=== PATIENT | female | born 1950 | race Two or more races ===

== ENCOUNTER 2022-04-09 09:02 | Outpatient (CLI) | payer MEDICARE, OTHER | END 2022-04-09 23:59 | disposition home or self-care (01) | LOC: LAB 09:02 | PROVIDERS: ATTEND Obstetrics & Gynecology | DX: Z01.812 Encounter for preprocedural laboratory examination (principal); Z20.822 Contact with and (suspected) exposure to COVID-19 | CPT/HCPCS: C9803; U0003 ==

== ENCOUNTER 2022-04-12 08:13 | Day surgery (SDC) | payer MEDICARE, OTHER ==
[~2022-04-12] VITALS: Ht 152.4 cm; Wt 67.1 kg
[2022-04-12 08:30] VITALS: BP 129/74
--- NOTE | 2022-04-12 08:30 | NUR ---
MS COMMODITIES TRADER NOTES RECEIVED PATIENT FROM HOME AMBULATORY AND A/O X4. ON ROOM AIR TOLERATING WELL. NO SOB NOTED. NOT IN DISTRESS. WITH NO COMPLAINTS OF PAIN OR DISCOMFORT AT THIS TIME. WITH NO IV ACCESS. FOR DAY SURGERY - EUA- UTERINE HYSTEROSCOPY WITH DILATATION AND CURETTAGE SCHEDULED AT 1000. SAFETY MEASURES IN PLACED. CALL LIGHT WITHIN REACH. BED ON LOWEST AND LOCKED POSITION. SIDE RAILS UP X2. WILL CONTINUE TO MONITOR.
[2022-04-12] MEDS ORDERED: ANESTHESIA TRAY IN PYXIS 1 EA TRAY MC ONE (08:49)
--- NOTE | 2022-04-12 09:45 | NUR ---
RN NOTES OBTAINED CONSENT FOR PROCEDURES AND WAS PICKED UP BY OR PERSONNEL.
[2022-04-12 09:52] LABS: BASOPHILS % (AUTO) 0.8 % (0.0-2.0); EOSINOPHILS % (AUTO) 4.3 % (0.0-6.0); HEMATOCRIT 39 % (33-45); HEMOGLOBIN 13.1 g/dL (11.5-14.8); LYMPHOCYTES # (AUTO) 0.8 K/uL (0.8-4.8); LYMPHOCYTES % (AUTO) 21.5 % (20.0-44.0); MEAN CORPUSCULAR HGB CONC 34 g/dl (31.0-36.0); MEAN CORPUSCULAR VOLUME 93 fL (82-100); MONOCYTES # (AUTO) 0.4 K/uL (0.1-1.30); MONOCYTES % (AUTO) 12.7 % (2.0-12.0); NEUTROPHILS # (AUTO) 2.1 K/uL (1.8-8.9); NEUTROPHILS % (AUTO) 60.7 % (43.0-81.0); PLATELET COUNT (AUTO) 208 K/uL (150-450); RED BLOOD CELL COUNT(AUTO) 4.23 MIL/uL (4.0-5.2); WHITE BLOOD COUNT (AUTO) 3.5 K/uL (4.3-11.0)
[2022-04-12] MEDS ORDERED: FENTANYL PF 100MCG/2ML AMPUL ONE (09:58)
[2022-04-12 10:04] LABS: CALCIUM, SERUM 8.7 mg/dL (8.5-10.1); CREATININE 0.8 mg/dL (0.6-1.3); POTASSIUM 3.6 mmol/L (3.5-5.1)
[2022-04-12 10:10] LABS: ALBUMIN 3.5 g/dL (3.4-5.0); BILIRUBIN,TOTAL 0.6 mg/dL (0.2-1.0); TOTAL PROTEIN, SERUM 7.2 g/dL (6.4-8.2)
--- NOTE | 2022-04-12 14:50 | NUR ---
METHODS TIME ANALYST NOTES PATIENT IS ORDERED FOR DISCHARGE POST SURGERY IF STABLE PER DOCTOR TOBAR. PATIENT REMAINED STABLE POST SURGERY. DISCHARGE INSTRUCTION PROVIDED TO THE PATIENT. PATIENT IS TO HAVE A FOLLOW-UP CHECK UP WITH PRIMARY CARE PHYSICIAN A WEEK AFTER DISCHARGE. DISCHARGE INSTRUCTION FORM SIGNED BY THE PATIENT. PATIENT VERBALIZED UNDERSTANDING. REMOVED IV LINE AND NAME [id number]. ACCOMPANIED PATIENT TO THE [facility] AMBULATORY AND IN STABLE CONDITION. MD AND CHARGE NURSE ARE AWARE OF THE DISCHARGE.
[2022-04-13 10:53] LABS: BILIRUBIN,URINE NEGATIVE (NEGATIVE); COLOR,URINE YELLOW (YELLOW); LEUKOCYTE ESTERASE ,URINE NEGATIVE (NEGATIVE); NITRITE, URINE NEGATIVE (NEGATIVE); PROTEIN,URINE NEGATIVE (NEGATIVE); UGLUCOSE NEGATIVE (NEGATIVE); UROBILINOGEN,URINE 0.2 EU/dL (0.2)
[2022-04-13 11:07] LABS: BACTERIA,URINE 4+ /HPF (None Seen); RBC,URINE NONE SEEN /HPF (0-2); SQUAMOUS EPITHELIAL CELL,UR 81-100 /HPF (None Seen); WBC,URINE NONE SEEN /HPF (0-3)
== END 2022-04-12 19:00 | disposition home or self-care (01) ==
LOC: DS 08:13 → UNDOADMIN 08:15 → MED 08:15 → UNDODISIN 15:09 → DS 19:00
PROVIDERS: ATTEND Obstetrics & Gynecology
DX: N85.2 Hypertrophy of uterus (principal); R10.2 Pelvic and perineal pain
CPT/HCPCS: 58558; 80053; 87086; 85025; 85730; 85610; 81001; 36415; J0690; J1100; J2704; J3010; J3490 ×2; J2405; J7030; A6402; G0378

== ENCOUNTER 2023-06-12 10:20 | Emergency (ER) | payer MEDICARE, OTHER ==
[~2023-06-12] VITALS: Ht 154.9 cm; Wt 68.0 kg
[2023-06-12 11:45] LABS: BASOPHILS % (AUTO) 0.6 % (0.0-2.0); CALCIUM, SERUM 8.7 mg/dL (8.5-10.1); CARBON DIOXIDE 21 mmol/L (21-32); CHLORIDE 109 mmol/L (98-107); CREATININE 0.7 mg/dL (0.6-1.3); EOSINOPHILS # (AUTO) 0.2 K/uL (0.0-0.7); EOSINOPHILS % (AUTO) 3.6 % (0.0-6.0); GLUCOSE 101 mg/dL (74-106); HEMATOCRIT 42 % (33-45); HEMOGLOBIN 13.5 g/dL (11.5-14.8); LYMPHOCYTES # (AUTO) 1.1 K/uL (0.8-4.8); MEAN CORPUSCULAR HEMOGLOBIN 31 PG (26.0-33.0); MEAN CORPUSCULAR HGB CONC 32 g/dl (31.0-36.0); MEAN CORPUSCULAR VOLUME 96 fL (82-100); MONOCYTES # (AUTO) 0.4 K/uL (0.1-1.30); MONOCYTES % (AUTO) 8.2 % (2.0-12.0); NEUTROPHILS # (AUTO) 2.7 K/uL (1.8-8.9); NEUTROPHILS % (AUTO) 62.6 % (43.0-81.0); PLATELET COUNT (AUTO) 181 K/uL (150-450); POTASSIUM 4.4 mmol/L (3.5-5.1); RED BLOOD CELL COUNT(AUTO) 4.37 MIL/uL (4.0-5.2); RED CELL DISTRIBUTION WIDTH 15.9 % (11.5-15.0); SODIUM SERUM 138 mmol/L (136-145); UREA NITROGEN, BLOOD 20 mg/dL (7-18); WHITE BLOOD COUNT (AUTO) 4.4 K/uL (4.3-11.0)
[2023-06-12 11:55] LABS: ALANINE AMINOTRANSFERASE 22 U/L (12-78); ALBUMIN 3.3 g/dL (3.4-5.0); ALKALINE PHOSPHATASE 48 U/L (46-116); ASPARTATE AMINOTRANSFERASE 26 U/L (15-37); BILIRUBIN,DIRECT 0.1 mg/dL (0.0-0.2); BILIRUBIN,TOTAL 0.5 mg/dL (0.2-1.0); TOTAL PROTEIN, SERUM 7.6 g/dL (6.4-8.2)
[2023-06-12 12:30] LABS: THYROID STIMULATING HORMONE 1.263 uIU/mL (0.358-3.74)
[2023-06-12 14:32] VITALS: BP 116/62; TEMP 98.2; O2SAT 98
== END 2023-06-12 14:32 | disposition home or self-care (01) ==
LOC: ER 10:38
DX: R41.0 Disorientation, unspecified (principal); R06.02 Shortness of breath; Z98.890 Other specified postprocedural states
CPT/HCPCS: 36415; 70450-TC; 71045-TC; 80048-TC; 80076-TC; 84443-TC; 84484-TC; 85025-TC